=== PATIENT | female | born 1980 | race Two or more races ===

== ENCOUNTER 2020-01-23 03:57 | Emergency (ER) | payer MEDICAID, OTHER, SELFPAY ==
[~2020-01-23] VITALS: Ht 170.2 cm; Wt 76.3 kg
--- NOTE | 2020-01-23 05:04 | NUR ---
Pt now sleeping.
[2020-01-23] MEDS ORDERED: SODIUM CHLORIDE FLUSH 10ML SYR IVF ONE (05:30)
[2020-01-23] MEDS ORDERED: OMNIPAQUE 350 MG/ML, 100ML BOTTLE ONE (06:03)
--- NOTE | 2020-01-23 06:45 | NUR ---
REPORT RECEIVED FROM YAMILE BERMUDEZ. PT SLEEPING ON DANUTA, CONNECTED TO MONITORING. CHEST RISE AND FALL NOTED.
[2020-01-23] MEDS ORDERED: SODIUM CHLORIDE 0.9% 1,000 ML IV SCH (07:24)
[2020-01-23] MEDS ORDERED: SODIUM CHLORIDE 0.9% IVPB SCH (07:30)
[2020-01-23] MEDS ORDERED: OXYcodone/APAP 5/325MG TABLET PO PRN (07:30)
[2020-01-23] MEDS ORDERED: HYDROmorphone 2 MG/ML, 1ML IVPush PRN (07:30)
[2020-01-23] MEDS ORDERED: ONDANSETRON 2MG/ML, 2ML IVPush PRN (07:30)
[2020-01-23] MEDS ORDERED: ACETAMINOPHEN 325 MG TABLET PO PRN (07:30)
[2020-01-23] MEDS ORDERED: DAPTOMYCIN IVPB SCH (07:30)
[2020-01-23] MEDS ORDERED: HEPARIN 5,000 UNITS/ML, 1ML SQ SCH (07:30)
--- NOTE | 2020-01-23 07:35 | NUR ---
[facility].
[2020-01-23] MEDS ORDERED: HEPARIN 5,000 UNITS/ML, 1ML ONE (07:37)
[2020-01-23 07:44] VITALS: BP 137/81
--- NOTE | 2020-01-23 07:45 | NUR ---
LAB IN ROOM FOR CULTURES.
--- NOTE | 2020-01-23 08:22 | NUR ---
CALL RECEIVED FROM . ORDER TO KEEP NPO. WOULD LIKE A CALL W/ MRI REPORT WHEN COMPLETED AT [phone].
[2020-01-23 08:25] LABS: HCT (SEDRATE) 40.2 % (34.6-47.8)
--- NOTE | 2020-01-23 08:37 | NUR ---
PT AWARE WE NEED URINE SAMPLE. WOULD LIKE TO TRY IN A LITTLE BIT AFTER SHE WAKES UP.
[2020-01-23] MEDS ORDERED: HYDROmorphone 1 MG/ML, 1ML INJ ONE (09:19)
--- NOTE | 2020-01-23 09:26 | NUR ---
UA SENT. MEDICATED FOR PAIN. OFF TO MRI
[2020-01-23 09:41] LABS: AMPHETAMINE SCREEN, URINE Positive (Negative); BARBITURATE SCREEN, URINE Negative (Negative); BENZODIAZEPINE SCREEN, URINE Negative (Negative); CANNABINOID SCREEN, URINE Negative (Negative); COCAINE SCREEN, URINE Negative (Negative); METHADONE SCREEN, URINE Negative (Negative); OPIATE SCREEN, URINE Positive (Negative)
[2020-01-23] MEDS ORDERED: GADOTERATE 7.5 MMOL/15 ML SYR ONE (10:13)
--- NOTE | 2020-01-23 10:35 | NUR ---
PT BACK FROM MRI. VSS.
[2020-01-23] MEDS ORDERED: INSULIN LISPRO 100 UNITS/ML, PEN SQ-INSULIN SCH (11:00)
--- NOTE | 2020-01-23 11:04 | NUR ---
Daughter phone number [phone]
--- NOTE | 2020-01-23 11:14 | NUR ---
PT BECOMING UPSET AT THIS RN BECAUSE SHE CANNOT EAT, WHICH PT WAS INFORMED THAT MRI RESULTS NEED TO BE READ PRIOR TO EATING. PT WANTING TO AMA AND GO OUTSIDE. AWARE. PT REFUSING TO STAY. IV REMOVED. ESCORTED BY SECURITY. PT EDUCATED ABOUT THE SEVERITY OF HER INJURY IN HER HAND AND ENCOURAGED TO STAY
== END 2020-01-23 11:17 | disposition left against medical advice (07) ==
LOC: ED 07:02 → EDIP 07:14 → UNDOADMIN 07:14 → ED 11:17
DX: A41.9 Sepsis, unspecified organism (principal); L03.113 Cellulitis of right upper limb; I80.8 Phlebitis and thrombophlebitis of other sites; E11.9 Type 2 diabetes mellitus without complications
CPT/HCPCS: 36415; 73201; 73220; 80074; 80307; 82550; 83036; 85651; 86140; 86592; 87040; 87806; 96372; 96374; 96375; 99285; A9575; J0878; J1170; J1644; J7030; Q9967; 96361; 96365; G0475